=== PATIENT | female | born 1975 | race Two or more races ===

== ENCOUNTER 2016-11-18 13:24 | Emergency (ER) | payer SELFPAY ==
[~2016-11-18] VITALS: Ht 172.7 cm; Wt 81.6 kg
[~2016-11-18 13:24] MED LIST: ALBU6.7H IH; TEGRETOL
--- NOTE | 2016-11-18 13:32 | NUR ---
PT BIBRA TO ER BED 09. SEIZURE EPISODE WHILE SELLING FRUITS. UNABLE TO RECALL WHAT HAPPEN. NO HEAD AND ORAL TRAUMA NOTED. PT IS AAOX3. STABLE VITALS. AWAITING MD ABBOTT.
--- NOTE | 2016-11-18 13:48 | NUR ---
JACOBY OLIVARES AT BEDSIDE FOR EVAL.
[2016-11-18] MEDS ORDERED: ACETAMINOPHEN ES 500 MG TABLET PO ONE (14:00)
[2016-11-18] MEDS ORDERED: ACETAMINOPHEN ES 500 MG TABLET ONE (14:02)
[2016-11-18] MEDS ORDERED: CARBAMAZEPINE 200 MG TABLET ONE ×2 (14:21→14:23)
--- NOTE | 2016-11-18 14:25 | NUR ---
CABAMAZEPINE 600MG GIVEN PER JACOBY OLIVARES VERBAL ORDER.
--- NOTE | 2016-11-18 14:29 | NUR ---
Patient discharged to home in stable condition. Written and verbal after care instructions given. Patient verbalizes understanding of instruction.
[2016-11-18] MEDS ORDERED: CARBAMAZEPINE 200 MG TABLET PO ONE ×2 (14:30)
[2016-11-18 14:31] VITALS: BP 142/87
== END 2016-11-18 14:32 | disposition home or self-care (01) ==
LOC: ER 13:26
DX: G40.909 Epilepsy, unspecified, not intractable, without status epilepticus (principal); J45.909 Unspecified asthma, uncomplicated
CPT/HCPCS: 99284; A4606; Z7610

== ENCOUNTER 2018-05-22 11:33 | Emergency (ER) | payer SELFPAY ==
[~2018-05-22] VITALS: Ht 162.6 cm; Wt 93.4 kg
--- NOTE | 2018-05-22 11:35 | NUR ---
PT BIBRA C/O CHEST PAIN FOR 2HRS, PT IS AAOX3 LAO SPEAKING, NOT IN RESPIRATORY DISTRESS, KEPT RESTED AND COMFORTABLE, WILL CONTINUE TO MONITOR.
--- NOTE | 2018-05-22 11:55 | NUR ---
LABS DRAWNED AND SENT TO LAB.
[2018-05-22] MEDS ORDERED: IV NS 0.9% 1,000 ML BAG IV ONE (12:00)
[2018-05-22] MEDS ORDERED: ONDANSETRON HCL/PF 4 MG/2 ML VIAL IVP ONE (12:00)
[2018-05-22 12:01] LABS: BASOPHILS # (AUTO) 0.1 /CMM (0.0-0.2); BASOPHILS % (AUTO) 0.6 % (0.0-2.0); EOSINOPHILS % (AUTO) 2.7 % (0.0-6.0); HEMATOCRIT 34 % (33-45); LYMPHOCYTES # (AUTO) 1.3 /CMM (0.8-4.8); LYMPHOCYTES % (AUTO) 12.9 % (20.0-44.0); MEAN CORPUSCULAR HGB CONC 33 g/dl (31.0-36.0); MEAN CORPUSCULAR VOLUME 82 fL (82-100); MONOCYTES # (AUTO) 0.5 /CMM (0.1-1.30); MONOCYTES % (AUTO) 5.3 % (2.0-12.0); NEUTROPHILS # (AUTO) 7.7 /CMM (1.8-8.9); NEUTROPHILS % (AUTO) 78.5 % (43.0-81.0); PLATELET COUNT (AUTO) 337 /CMM (150-450); RED BLOOD CELL COUNT(AUTO) 4.11 MIL/uL (4.0-5.2); WHITE BLOOD COUNT (AUTO) 9.8 K/uL (4.3-11.0)
[2018-05-22] MEDS ORDERED: ONDANSETRON HCL/PF 4 MG/2 ML VIAL ONE (12:02)
[2018-05-22 12:09] LABS: CALCIUM, SERUM 8.8 mg/dL (8.5-10.1); CARBON DIOXIDE 25 mmol/L (21-32); CHLORIDE 100 mmol/L (98-107); CREATININE 0.7 mg/dL (0.6-1.3); GLUCOSE 117 mg/dL (74-106); POTASSIUM 3.7 mmol/L (3.5-5.1); SODIUM SERUM 134 mmol/L (136-145); UREA NITROGEN, BLOOD 9 mg/dL (7-18)
--- NOTE | 2018-05-22 12:10 | NUR ---
RADIOLOGY AT BEDSIDE FOR XRAY.
[2018-05-22 12:15] LABS: ALANINE AMINOTRANSFERASE 18 U/L (12-78); ALBUMIN 3.6 g/dL (3.4-5.0); ALKALINE PHOSPHATASE 157 U/L (46-116); ASPARTATE AMINOTRANSFERASE 24 U/L (15-37); BILIRUBIN,TOTAL 0.2 mg/dL (0.2-1.0); TOTAL PROTEIN, SERUM 8.7 g/dL (6.4-8.2)
--- NOTE | 2018-05-22 13:41 | NUR ---
IV removed. Catheter intact and site benign. Pressure and 4x4 applied to site. No bleeding noted. Patient discharged to home in stable condition. Written and verbal after care instructions given. Patient verbalizes understanding of instruction.
[2018-05-22 13:43] VITALS: BP 135/81
== END 2018-05-22 13:44 | disposition home or self-care (01) ==
LOC: ER 11:35
DX: R07.89 Other chest pain (principal); R11.10 Vomiting, unspecified; R19.7 Diarrhea, unspecified; G40.909 Epilepsy, unspecified, not intractable, without status epilepticus; J45.909 Unspecified asthma, uncomplicated; R00.0 Tachycardia, unspecified
CPT/HCPCS: 36415; 71045-TC; 80048-TC; 80076-TC; 84484-TC; 85025-TC; 85730-TC; J2405; J7030